=== PATIENT | male | born 1970 | race Two or more races ===

== ENCOUNTER 2025-01-07 08:35 | Emergency (ER) | payer MEDICAID, SELFPAY ==
[2025-01-07 08:36] VITALS: BMI 30.5
[2025-01-07 08:41] VITALS: BP 130/85; PULSE 73; RESP 18; TEMP 36.6; O2SAT 97; BMI 30.1
--- NOTE | 2025-01-07 09:08 | EKG_ITS ---
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
--- NOTE | 2025-01-07 09:09 | PD.EDWEAK ---
ED Weakness RME/HPI General Chief complaint: Dizziness Stated complaint: DIZZY/HEADACHE/DOUBLE VISION X5 DAYS Time Seen by Provider: 01/07/25 09:01 Arrival date/time: 01/07/25 08:35 Limitations: no limitations RME / HPI RME / HPI Narrative: 54 year old male with history of hypertension, diabetes, hyperlipidemia presents to the ED for evaluation of generalized weakness, dizziness, and posterior headache beginning 5 days ago. Accompanied by intermittent episodes of blurred vision. 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 Reports drinking enough water in the last few days. Denies checking sugar at home. Denies leg/muscle cramping, change in speech/gait, fevers, chills, abdominal pain, n/v/d, or urinary symptoms. No other associated symptoms reported. Patient mentioned in the last week he has forgotten to take his medications several times. Related Data Previous Rx's ?Medication ?Instructions ?Recorded ibuprofen 800 mg tablet 800 mg PO TID PRN pain #30 tabs 01/25/20 tramadol 50 mg tablet 50 mg PO TID PRN pain #15 tabs 09/08/20 tramadol 50 mg tablet 50 mg PO TID PRN pain #15 tabs 09/08/20 Allergies Allergy/AdvReac Type Severity Reaction Status Date / Time No Known Allergies Allergy Verified 01/07/25 08:38 Review of Systems Review of Systems Systems Reviewed: All systems reviewed, normal except as documented Past Medical History Past Medical History CARDIAC: Positive Hypertension ENDOCRINE: Positive Diabetes Mellitus Type 2 Family History FAMILY HISTORY: Negative Family Psychiatric Problems, Family Respiratory Disorders, Family Cardiac Disorders, Family Gastrointestinal Problems, Family Genitourinary Problems, Family Endocrine Disorders, Family Reproductive Disorders, Family Musculoskeletal Disorders, Family Cancer, Family Surgery or Family Anesthesia Reaction Social History SMOKING STATUS: Never smoker ED Exam General Limitations: Present no limitations General appearance: Present alert and in no apparent distress Head Head exam: Present atraumatic, normocephalic and normal inspection Eye Eye exam: Present normal appearance, PERRL and EOMI ENT ENT exam: Present normal exam, normal oropharynx and mucous membranes moist Neck Neck exam: Present normal inspection, full ROM and trachea midline Chest Chest inspection: Present normal inspection and symmetric chest wall rise Respiratory Respiratory exam: Present normal lung sounds bilaterally Cardiovascular Cardiovascular exam: Present regular rate, normal rhythm and normal heart sounds Abdominal Exam Abdominal exam: Present soft and normal bowel sounds Extremities Exam Extremities exam: Present normal inspection and full ROM Back Exam Back exam: Present normal inspection and full ROM Neurological Exam Neurological exam: Present alert, oriented X3 and CN II-XII intact Psychiatric Psychiatric exam: Present normal affect and normal mood Skin Skin exam: Present warm, dry, intact and normal color Course Quality Measures none Orders Category Date Time Status EKG (ED ONLY) *Do not use* NOW Care 01/07/25 09:08 Completed EKG (ED Only) Stat Exams 01/07/25 09:08 Draft B-Type Natriuretic Peptide Stat Lab 01/07/25 09:35 Completed CBC Stat Lab 01/07/25 09:35 Completed Comprehensive Metabolic Panel Stat Lab 01/07/25 09:35 Completed Creatine Kinase Stat Lab 01/07/25 09:35 Completed Magnesium Stat Lab 01/07/25 09:35 Completed TSH [Thyroid Stimulating Hormone] Stat Lab 01/07/25 09:35 Completed Troponin I Stat Lab 01/07/25 09:35 Completed Vital Signs Vital signs: Vital Signs Temperature 97.9 F 01/07/25 08:41 Pulse Rate 73 01/07/25 08:41 Respiratory Rate 18 01/07/25 08:41 Blood Pressure 130/85 H 01/07/25 08:41 Pulse Oximetry (%) 97 01/07/25 08:41 Oxygen Delivery Method Room Air 01/07/25 08:41 Pulse ox is 97% on room air which is adequate. Weakness MDM Narrative MDM Narrative:: Aishwarya Tillman am scribing for and in the presence of Dr. Chapman. 54 year old male with history of hypertension, diabetes, and hyperlipidemia, who came in for generalized weakness, dizziness, and a posterior headache for the past 5 days, accompanied by intermittent blurred vision. 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 Mentioned missing several doses of his medications in the past week and denies checking his blood sugar at home. Denies leg cramps, neurological symptoms, or any other associated symptoms. Labs including CBC and CMP are unremarkable, with no signs of infection, electrolyte imbalances, or renal dysfunction. Patient has remained stable through ED course. Will DC home. Patient data External records reviewed:: [facility] previous records (I reviewed ED Visit on 09/08/2020 ) Clinical information provided by:: patient Social determinants that could affect healthcare access:: none Patient has the following chronic illnesses:: HTN, DM, HLD How is presenting disease/condition affected by chronic disease/condition?: exacerbated by Evaluation data The following diagnostics were reviewed and interpreted by me:: lab results, radiology exam(s) and EKG tracing(s) (Sinus rhythm, rate 72, no STEMI. ) Lab and/or radiology exams considered but not ordered:: None Interpretation Summary: As noted above Medications / Prescriptions Medications or Prescriptions considered but not ordered:: None Medication administrations:: None Consultations Consultation(s) initiated? (list below): No Diagnosis Weakness Differential Diagnosis: anemia, hypothyroidism, sepsis and dehydration Most likely diagnosis given after review of the tests above:: Fatigue Admission Indicated Admission indicated?: not indicated Admission Request Was there a request for admission?: No Disposition Plan Disposition Plan: Discharge Discharge Attestation Discharge Attestation: The patient and all family members were given an opportunity to ask questions and understood the discharge instructions. Discharge instructions specifically effects, indications for sooner follow up or return to the emergency department, and the expected course of current diagnosis. Patient condition: Stable Discharge Plan Plan Patient Disposition: HOME (Self Care) Patient condition on transfer: Stable Prescriptions/Referrals Prescriptions/Med Rec: No Action ibuprofen 800 mg tablet 800 mg PO TID PRN (Reason: pain) Qty: 30 0RF tramadol 50 mg tablet 50 mg PO TID PRN (Reason: pain) Qty: 15 0RF tramadol 50 mg tablet 50 mg PO TID PRN (Reason: pain) Qty: 15 0RF Referrals: Yamil Rebolledo MD [Primary Care Provider] - In 1 week Problem List Clinical Impression: Fatigue Patient/Caregiver Discharge Instructions Discharge Activity: activity as tolerated Education Materials: ED Weakness (Uncertain Cause) Additional Instructions: Follow-up with your primary care doctor in 3 to 5 days for recheck. You can return to the emergency department sooner if symptoms worsen or if you notice any new, concerning issues. Print Language: Belarusian Stand Alone Forms: Jess Award Info., Patient Portal Info Letter
[2025-01-07 10:03] LABS: Basophils # (Auto) 0.1 Thou/mm3 (0.0-0.2); Basophils % (Auto) 1 % (0-2.5); Eosinophils # (Auto) 0.1 Thou/mm3 (0.0-0.5); Eosinophils % (Auto) 1 % (0-10); Hematocrit 43.0 % (41.0-53.0); Hemoglobin 14.8 g/dL (13.5-16.0); Immature Granulocytes Auto 0.02 Thou/mm3 (0.00-0.00); Lymphocytes # (Auto) 2.2 Thou/mm3 (1.0-4.8); Lymphocytes % (Auto) 24 % (10-50); Mean Corpuscular HGB Conc 34.4 g/dl (31.0-37.0); Mean Corpuscular Hemoglobin 30.1 pg (25.0-35.0); Mean Corpuscular Volume 87 fL (80-100); Monocytes # (Auto) 0.4 Thou/mm3 (0.0-0.8); Monocytes % (Auto) 5 % (0-12); Neutrophils # (Auto) 6.2 Thou/mm3 (1.8-7.7); Neutrophils % (Auto) 70 % (37-80); Nucleated Red Blood Cell # 0.00 Thou/mm3 (0.00-0.00); Nucleated Red Blood Cell % 0 /100 WBC (0); Platelet Count 329 Thou/mm3 (140-440); RDW Standard Deviation 39.4 fL (35.1-43.9); Red Blood Count 4.92 Miln/mm3 (4.50-5.90); White Blood Count 8.9 Thou/mm3 (3.8-10.6)
[2025-01-07 10:25] LABS: Alanine Aminotransferase 35 U/L (10-49); Albumin, Serum 4.7 gm/dL (3.5-5.0); Albumin/Globulin Ratio 1.6 (1.2-2.2); Alkaline Phosphatase 78 U/L (46-116); Anion Gap 10 (7-16); Aspartate Amino Transferase 20 U/L (0-34); BUN/Creatinine Ratio 17 Ratio (12-20); Bilirubin,Total 0.5 mg/dL (0.3-1.2); Blood Urea Nitrogen 15 mg/dL (9-23); Calcium 9.3 mg/dL (8.3-10.6); Calcium (Corrected) 9.3 mg/dL (8.5-10.1); Carbon Dioxide 28.8 mMol/L (20.0-31.0); Chloride 101 mMol/L (98-107); Creatine Kinase 78 U/L (34-171); Creatinine (Component) 0.9 mg/dL (0.6-1.3); Estimated Creatinine Clearance 104.2 mL/min (>60); Globulin 3.0 gm/dL (2.3-3.5); Glucose 120 mg/dL (74-106); Magnesium 2.2 mg/dL (1.6-2.6); Osmolality,Calculated 281 (275-295); Potassium 3.9 mMol/L (3.4-5.1); Sodium 140 mMol/L (136-145); Thyroid Stimulating Hormone 1.35 uIU/mL (0.55-4.78); Total Protein 7.7 gm/dL (5.7-8.2); Troponin I < 0.002 ng/mL (0.0-0.045); eGFR > 60 See Note
[2025-01-07 10:30] LABS: B-Type Natriuretic Peptide < 20 pg/mL (0-100)
== END 2025-01-07 10:51 | disposition home or self-care (01) ==
PROVIDERS: Emergency Provider Emergency Medicine; PCP Internal Medicine
DX: R42 Dizziness and giddiness (principal); R53.83 Other fatigue; E11.9 Type 2 diabetes mellitus without complications; E78.5 Hyperlipidemia, unspecified; I10 Essential (primary) hypertension; H53.8 Other visual disturbances; R51.9 Headache, unspecified
CPT/HCPCS: 36415; 80053; 82550; 83735; 83880; 84443; 84484; 85025; 93005; 99283

== ENCOUNTER 2025-04-28 18:11 | Emergency (ER) | payer MEDICAID, SELFPAY ==
[2025-04-28 19:01] VITALS: BP 148/90; PULSE 93; RESP 18; TEMP 36.7; O2SAT 96
--- NOTE | 2025-04-28 19:07 | EKG_ITS ---
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1970 Requested By: Abundio Smith Order Number: [id number] Reading MD: Abundio Smith Measurements Intervals [place] Rate: 92 P: 58 WA: 167 QRS: 144 QRSD: 109 T: 18 QT: 334 QTc: 414 Interpretive Statements SINUS RHYTHM PATTERN CONSISTENT WITH PULMONARY DISEASE INCOMPLETE RIGHT BUNDLE BRANCH BLOCK [90+ ms QRS DURATION, TERMINAL R IN V1/V2, 40+ ms S IN I/aVL/V4/V5/V6] POSSIBLE RIGHT VENTRICULAR HYPERTROPHY [SOME/ALL OF: PROMINENT R IN V1, LATE TRANSITION, RAD, SRIRAM, SSS] Compared to ECG 01/07/2025 09:13:43 Incomplete right bundle-branch block now present Indeterminate axis no longer present Intraventricular conduction delay no longer present /store/S0/[id number]
--- NOTE | 2025-04-28 19:07 | XR_ITS ---
Examination: CT brain head without contrast. 2-D sagittal coronal reconstructions Date and time of exam: April 28, 2025, 1911 hours INDICATIONS: Headaches and dizziness and weakness today CTDI: vol (mGy): 52.4 DLP: (mGycm): 196 Technique: Multiple CT axial sections of the brain have been obtained, 5 mm slice thickness. Contrast has not been administered. 2-D sagittal, coronal reconstructions have been obtained Low dose protocols were performed. One or more of the following dose reduction techniques were used; automated exposure control, adjustment of the mA and/or KV according to patient size, use of iterative reconstruction technique. Findings: No significant ventricular enlargement. Intra-axial or extra-axial hemorrhage density is not seen. No mass effect or midline shift Basal cisterns are not remarkable. Fourth ventricle is midline. Cranial vault intact. Large retention cyst in the right maxillary antrum Impression: Negative for acute hemorrhage, mass effect or midline shift Advise clinical correlation and follow-up accordingly
--- NOTE | 2025-04-28 19:07 | PD.EDRME ---
Rapid Medical Screening Exam RME Arrival date/time: 04/28/25 18:11 This is a case of 55-year-old male with history of hypertension came in in the emergency room due to generalized weakness and dizziness today worsening of the symptoms this patient decided to start consulted in the emergency room Chief Complaint: Dizziness Time Seen by Provider: 04/28/25 18:40 Vital signs: Vital Signs Temperature 98.0 F 04/28/25 19:01 Pulse Rate 93 04/28/25 19:01 Respiratory Rate 18 04/28/25 19:01 Blood Pressure 148/90 H 04/28/25 19:01 Pulse Oximetry (%) 96 04/28/25 19:01 Oxygen Delivery Method Room Air 04/28/25 19:01 Exam: Neurological exam is patient is awake alert oriented x 4 no focal deficit GCS 15/15 steady gait Clinical Impression: Dizziness
[2025-04-28 19:59] LABS: Collection Type, Urine Clean Catch
[2025-04-28 20:03] LABS: Basophils # (Auto) 0.1 Thou/mm3 (0.0-0.2); Basophils % (Auto) 1 % (0-2.5); Eosinophils # (Auto) 0.0 Thou/mm3 (0.0-0.5); Eosinophils % (Auto) 0 % (0-10); Hematocrit 47.6 % (41.0-53.0); Hemoglobin 15.6 g/dL (13.5-16.0); Immature Granulocytes Auto 0.03 Thou/mm3 (0.00-0.00); Lymphocytes # (Auto) 2.3 Thou/mm3 (1.0-4.8); Lymphocytes % (Auto) 22 % (10-50); Mean Corpuscular HGB Conc 32.8 g/dl (31.0-37.0); Mean Corpuscular Hemoglobin 29.2 pg (25.0-35.0); Mean Corpuscular Volume 89 fL (80-100); Monocytes # (Auto) 0.6 Thou/mm3 (0.0-0.8); Monocytes % (Auto) 6 % (0-12); Neutrophils # (Auto) 7.3 Thou/mm3 (1.8-7.7); Neutrophils % (Auto) 71 % (37-80); Nucleated Red Blood Cell # 0.00 Thou/mm3 (0.00-0.00); Nucleated Red Blood Cell % 0 /100 WBC (0); Platelet Count 329 Thou/mm3 (140-440); RDW Standard Deviation 40.0 fL (35.1-43.9); Red Blood Count 5.35 Miln/mm3 (4.50-5.90); White Blood Count 10.3 Thou/mm3 (3.8-10.6)
[2025-04-28 20:08] LABS: Bilirubin,Urine Negative (Negative); Blood,Urine 1+ (Negative); Clarity,Urine Clear (Clear/Hazy); Color,Urine Yellow (Lt Yel-Yel); Glucose, Urine Negative (Negative); Hyaline Casts,Urine < 1 /hpf (0-1); Ketones,Urine Negative (Negative); Leukocyte Esterase,Urine Negative (Negative); Nitrite,Urine Negative (Negative); PH,Urine 6.0 (5.0-7.0); Protein,Urine 1+ (Neg - Trace); RBC,Urine 9 /hpf (0-3); Specific Gravity,Urine 1.033 (1.001-1.035); Squamous Epithelial Cell,Urine 4 /hpf (0-5); Urobilinogen,Urine Negative mg/dL (0.0-1.0); WBC,Urine 4 /hpf (0-5)
[2025-04-28 20:30] LABS: Alanine Aminotransferase 32 U/L (10-49); Albumin, Serum 5.1 gm/dL (3.5-5.0); Albumin/Globulin Ratio 1.7 (1.2-2.2); Alkaline Phosphatase 83 U/L (46-116); Anion Gap 12 (7-16); Aspartate Amino Transferase 19 U/L (0-34); BUN/Creatinine Ratio 15 Ratio (12-20); Bilirubin,Total 0.4 mg/dL (0.3-1.2); Blood Urea Nitrogen 16 mg/dL (9-23); Calcium 10.3 mg/dL (8.3-10.6); Calcium (Corrected) 10.3 mg/dL (8.5-10.1); Carbon Dioxide 27.3 mMol/L (20.0-31.0); Chloride 103 mMol/L (98-107); Creatinine (Component) 1.1 mg/dL (0.6-1.3); Globulin 3.0 gm/dL (2.3-3.5); Glucose 101 mg/dL (74-106); Osmolality,Calculated 284 (275-295); Potassium 3.7 mMol/L (3.4-5.1); Sodium 142 mMol/L (136-145); Total Protein 8.1 gm/dL (5.7-8.2); Troponin I < 0.002 ng/mL (0.0-0.045); eGFR > 60 See Note
[2025-04-28 21:53] VITALS: BP 169/93; PULSE 72; RESP 18; TEMP 36.5; O2SAT 97
--- NOTE | 2025-04-28 22:07 | EDNOTE_ITS ---
ED General RME/HPI General Chief complaint: Dizziness Stated complaint: DIZZINESS, WEAKNESS Time Seen by Provider: 04/28/25 18:40 Arrival date/time: 04/28/25 18:11 CC: Generalized weakness HPI ongoing for the past 2 days denies fall repetitive motion dizziness headache nausea vomiting black tarry stools fall or syncope. Patient is currently has no complaints of chest pain shortness of breath or difficulty breathing. RME / HPI RME / HPI narrative: 04/28/25 18:11 This is a case of 55-year-old male with history of hypertension came in in the emergency room due to generalized weakness and dizziness today worsening of the symptoms this patient decided to start consulted in the emergency room Exam: Neurological exam is patient is awake alert oriented x 4 no focal deficit GCS 15/15 steady gait Impression: Dizziness Related Data Previous Rx's ?Medication ?Instructions ?Recorded ibuprofen 800 mg tablet 800 mg PO TID PRN pain #30 t abs 01/25/20 tramadol 50 mg tablet 50 mg PO TID PRN pain #15 ta bs 09/08/20 tramadol 50 mg tablet 50 mg PO TID PRN pain #15 ta bs 09/08/20 Allergies Allergy/AdvReac Type Severity Reaction Status Date / Time No Known Allergies Allergy Verified 01/07/25 08:38 Review of Systems Review of Systems Narrative Review of Systems: GEN: No fever, no chills, no weight loss EYES: No discharge, no visual changes, no pain HEENT: No ear pain, no congestion, no sore throat PULM: No shortness of breath, no cough, no congestion CV: No chest pain, no dyspnea on exertion, no palpitations GI: No nausea, no vomiting, no diarrhea, no pain, no constipation : No frequency, no urgency, no dysuria MUSC/SKEL: No joint pain, no back pain SKIN: No rash PSYCH: No hallucinations, no depression HEME/LYMPH: No easy bleeding or bruising tendencies NEURO: No weakness, no headache Past Medical History Past Medical History CARDIAC: Positive Hypertension; Negative Congestive Heart Failure RESPIRATORY: Negative Chronic Obstructive Pulmonary Disease (COPD) GENITOURINARY: Negative Renal Disease ENDOCRINE: Positive Diabetes Mellitus Type 2; Negative Diabetes Mellitus Type 1 OTHER HISTORY: Negative Autoimmune Disease Family History FAMILY HISTORY: Negative Family Psychiatric Problems, Family Respiratory Disorders, Family Cardiac Disorders, Family Gastrointestinal Problems, Family Cancer, Family Surgery or Family Anesthesia Reaction Social History SMOKING STATUS: Never smoker ED Exam Narrative Physical exam: [General: Obese not in any acute distress Head normocephalic HEENT: Within acceptable limits Neck is supple nontender Chest equal chest rise nontender to palpation Respiratory: Clear to auscultation no wheezes crackles or rubs CV: Rate rhythm is regular no murmurs rubs or clicks Abdomen is soft nontender no masses positive bowel sounds all 4 quadrants Back: No CVA tenderness no spinous process tenderness from cervical spine thoracic and lumbar spine Skin: Intact no petechiae rash induration ulceration or crepitus Extremities: Moving all extremity against resistance cap refill less than 2 seconds neurosensory intact Neuro: Awake alert oriented x3 Glascow coma 15 no focal deficits] Course Quality Measures none Orders Category Date Time Status EKG (ED ONLY) *Do not use* NOW Care 04/28/25 19:[address] head/brain wo con Stat Exams 04/28/25 19:07 Completed EKG (ED Only) Stat Exams 04/28/25 19:07 Draft CBC Stat Lab 04/28/25 19:34 Completed Comprehensive Metabolic Panel Stat Lab 04/28/25 19:34 Completed Troponin I Stat Lab 04/28/25 19:34 Completed Urinalysis Stat Lab 04/28/25 19:49 Completed Vital Signs Vital signs: Vital Signs Temperature 98.0 F 04/28/25 19:01 Pulse Rate 93 04/28/25 19:01 Respiratory Rate 18 04/28/25 19:01 Blood Pressure 148/90 H 04/28/25 19:01 Pulse Oximetry (%) 96 04/28/25 19:01 Oxygen Delivery Method Room Air 04/28/25 19:01 Discharge Plan Plan Patient Disposition: HOME (Self Care) Patient condition on transfer: Stable Prescriptions/Referrals Prescriptions/Med Rec: No Action ibuprofen 800 mg tablet 800 mg PO TID PRN (Reason: pain) Qty: 30 0RF tramadol 50 mg tablet 50 mg PO TID PRN (Reason: pain) Qty: 15 0RF tramadol 50 mg tablet 50 mg PO TID PRN (Reason: pain) Qty: 15 0RF Referrals: Devon Post MD [Physician, Family Practice] - In 1 week No Primary/Family,Physician [Primary Care Provider] - In 1 week Problem List Clinical Impression: Weakness Patient/Caregiver Discharge Instructions Education Materials: ED Weakness (Uncertain Cause) Print Language: Cook Islander Stand Alone Forms: Jess Award Info., Work/School Release, Patient Portal Info Letter NELA/RACHELLE Supervising Physician DAMARIS Supervising Physician: Mc Prater ENP [facility] Clinical Information Provided by: patient Medical Records reviewed [facility] Meds/Rx considered, not ordered None Labs/Rad/Tests considered, not ordered None Chronic Illness/Social Conditions which may negatively complicate care or outcome(s)-explain: None or not applicable EKG Interpretation EKG #1: EKG Interpretation: EKG performed at 1908 shows a ventricular rate of 92 UT interval 167 QT RS of 109 QTc of 384 this is sinus rhythm incomplete right bundle branch block. Labs Labs: interpreted by me Lab(s) Interpretation(s): CBC shows no acute leukocytosis anemia thrombocytopenia CMP shows no significant electrolyte imbalances renal impairment transaminitis or T. bili elevation Urine 1+ protein 1+ blood 9 urine RBCs no other source. Imaging Imaging interpretation: interpreted by me Imaging Interpretation(s): CT of the head is unremarkable for any acute finding.
== END 2025-04-28 22:22 | disposition home or self-care (01) ==
PROVIDERS: Nurse Practitioner Family; Emergency Provider Emergency Medicine
DX: R53.1 Weakness (principal); I10 Essential (primary) hypertension; I45.10 Unspecified right bundle-branch block
CPT/HCPCS: 36415; 70450; 80053; 81001; 84484; 85025; 93005; 99282